=== PATIENT | male | born 1990 | race Caucasian/White ===

== ENCOUNTER 2016-10-22 13:15 | Observation (INO) | payer BC ==
[~2016-10-22] VITALS: Ht 188 cm; Wt 84.1 kg
[2016-10-22 13:45] LABS: HEMATOCRIT 43.5 % (38.0-50.0); MCH 29.3 PG (29.0-34.0); MCHC 35.4 G/DL (30.0-36.0); MCV 82.7 FL (86-99); MEAN PLAT.VOLUME 9.3 uM^3 (9.0-12.4); PLATELET COUNT 265 K/uL (156-360); RBC DIS.WIDTH-CV 11.6 % (11.8-14.6); RBC DIS.WIDTH-SD 34.8 % (39-53); RED BLOOD COUNT 5.26 M/uL (4.00-5.50); WHITE BLOOD COUNT 8.7 K/uL (4.1-10.2)
[2016-10-22 13:53] LABS: CHLORIDE 105 mEq/L (99-109); POTASSIUM 3.9 mEq/L (3.7-5.4); SODIUM 139 mEq/L (136-147)
[2016-10-22 13:55] LABS: GLUCOSE 85 mg/dL (70-99)
[2016-10-22 13:56] LABS: ANION GAP 11 MEQ/L (2-14)
[2016-10-22 13:57] LABS: TOTAL BILIRUBIN 1.6 mg/dL (0.0-1.0)
[2016-10-22 13:59] LABS: ALKALINE PHOSPHATASE 60 IU/L (3-129)
[2016-10-22 14:00] LABS: GFR ESTIMATE (CALCULATED) > 59 mL/min/; UREA NITROGEN (BUN) 13 mg/dL (9-23)
[2016-10-22 16:07] LABS: LIPASE 28 U/L (1.0-51.0)
[2016-10-22 17:28] LABS: ADD MIUA? NO; BILIRUBIN NEGATIVE; BLOOD NEGATIVE; COLOR YELLOW ((YELLOW)); GLUCOSE (STRIP) NEGATIVE; KETONES 5; LEUKOCYTES NEGATIVE; NITRITE NEGATIVE; PROTEIN (STRIP) 30; SPECIFIC GRAVITY 1.021 (1.000-1.030); UCUL ADDED? NO
[2016-10-22 23:24] VITALS: BP 108/55
[2016-10-23 06:01] LABS: EOSINOPHIL (%) 4.1 % (0-5); EOSINOPHIL COUNT 0.3 K/uL (0-0.3); HEMATOCRIT 39.8 % (38.0-50.0); IMMATURE GRANULOCYTE (%) 0.4 % (0.0-0.7); INSTRUMENT ABS NEUTROPHIL CT 3.7 K/uL; LYMPHOCYTE COUNT 2.2 K/uL (1.0-2.8); MCH 30.2 PG (29.0-34.0); MCHC 35.9 G/DL (30.0-36.0); MEAN PLAT.VOLUME 9.3 uM^3 (9.0-12.4); MONOCYTE (%) 8.4 % (3-12); MONOCYTE COUNT 0.6 K/uL (0-0.8); NEUTROPHIL (%) 54.7 % (45-76); NEUTROPHIL COUNT 3.7 K/uL (1.8-6.4); PLATELET COUNT 224 K/uL (156-360); RBC DIS.WIDTH-CV 11.7 % (11.8-14.6); RBC DIS.WIDTH-SD 35.5 % (39-53); RED BLOOD COUNT 4.74 M/uL (4.00-5.50); WHITE BLOOD COUNT 6.8 K/uL (4.1-10.2)
[2016-10-23 09:00] VITALS: BP 126/76
[2016-10-23 16:53] VITALS: BP 113/72
[2016-10-23 23:32] VITALS: BP 112/91
[2016-10-24 03:25] VITALS: BP 111/59
[2016-10-24 07:34] VITALS: BP 125/72
[2016-10-24] MEDS ORDERED: PERCOCET 5/31 TABLET PO (07:47)
[2016-10-24] MEDS ORDERED: AUGMENTIN875 MG PO (07:47)
== END 2016-10-24 10:20 | disposition home or self-care (01) ==
LOC: EME 13:15 → 5EAST 16:21 → EDOF 16:21 → ENRESERV 16:26 → 5EAST 17:52
PROVIDERS: Surgery
DX: K35.80 Unspecified acute appendicitis (principal); K59.00 Constipation, unspecified
CPT/HCPCS: 74176; 80053; 81003; 83690; 85025; 85027; 99281; 99284; G0378; J2543; J7030; J7050